=== PATIENT | male | born 1980 | race Caucasian/White ===

== ENCOUNTER 2022-04-05 10:56 | Emergency (ER) | payer OTHER ==
[2022-04-05] MEDS ORDERED: MORPHINE 4 MG/ML SYR ONE (11:16)
[2022-04-05] MEDS ORDERED: ONDANSETRON 4 MG (ODT) TAB ONE (11:17)
--- NOTE | 2022-04-05 12:55 | RAD REPORT ---
EXAM DESCRIPTION: RAD - Ankle Left 3 View - 04/05/2022 12:36 pm CLINICAL HISTORY: PAIN COMPARISON: No comparisons FINDINGS/IMPRESSION: No acute fracture. No malalignment. No significant focal degenerative changes.
--- NOTE | 2022-04-05 13:01 | EDPHYS ---
Physician Documentation [facility] Name: Daniel Munguia Age: 41 yrs Sex: Male : 1980 Arrival Date: 04/05/2022 Time: 10:58 Bed 12 Private MD: ED Physician Zafar Roberson HPI: 04/05 11:09 This 41 yrs old Male presents to ER via Wheelchair with complaints of Ankle Injury. jmm 11:09 The patient presents with an injury, pain. Onset: The symptoms/episode began/occurred jmm acutely. Associated signs and symptoms: Pertinent positives: swelling. This is a 41 year old male with no chronic medical conditions that presents to the ED with complaints of left ankle pain and swelling after turning his foot. Denies other injury. . Historical: - Allergies: 11:03 NSAIDS; iw - Home Meds: 11:03 None [Active]; iw - PMHx: 11:03 None; iw - PSHx: 11:03 jaw; hernia; iw - Immunization history:: Client reports receiving the 2nd dose of the Covid vaccine. - Social history:: Smoking status: Patient denies any tobacco usage or history of. ROS: 11:09 Constitutional: Negative for fever, chills, and weight loss, Cardiovascular: Negative jmm for chest pain, palpitations, and edema, Respiratory: Negative for shortness of breath, cough, wheezing, and pleuritic chest pain. 11:09 MS/extremity: Positive for swelling. 11:09 All other systems are negative. Exam: 11:09 Constitutional: This is a well developed, well nourished patient who is awake, alert, jmm and in no acute distress. Head/Face: atraumatic. Eyes: EOMI, no conjunctival erythema appreciated ENT: Moist Mucus Membranes Neck: Trachea midline, Supple Chest/axilla: Normal chest wall appearance and motion. Cardiovascular: Regular rate and rhythm. No edema appreciated Respiratory: Normal respirations, no respiratory distress appreciated Abdomen/GI: Non distended Back: Normal ROM Skin: General appearance color normal 11:09 Musculoskeletal/extremity: swelling noted to the left ankle at the lateral malleolar region, no pain noted to the base of the 5th metatarsal, compartments are soft, NVI. 11:09 Skin: Appearance: Color: normal in color. 11:09 Neuro: Orientation: is normal, Mentation: is normal, Memory: is normal. 11:09 Psych: Behavior/mood is pleasant, cooperative. Vital Signs: 11:02 BP 119 / 83; Pulse 73; Resp 18; Temp 98.0; Pulse Ox 98% ; Weight 86.18 kg; Height 5 ft. iw 10 in. (177.80 cm); Pain 7/10; 11:02 Body Mass Index 27.26 (86.18 kg, 177.80 cm) iw MDM: 11:09 Patient medically screened. [facility] [place] 12:59 Data reviewed: vital signs, nurses notes. [facility] [place] 14:29 Data reviewed: radiologic studies. I considered the following discharge prescriptions jmm or medication management in the emergency department Medications were administered in the Emergency Department. See MAR. Independent interpretation of the following test(s) in the Emergency Department X-Ray: My interpretation is No fracture appreciated. Historians other than the Patient: . Counseling: I had a detailed discussion with the patient and/or guardian regarding: the historical points, exam findings, and any diagnostic results supporting the discharge/admit diagnosis, radiology results, the need for outpatient follow up, to return to the emergency department if symptoms worsen or persist or if there are any questions or concerns that arise at home. Response to treatment: the patient's symptoms have mildly improved after treatment. 04/05 11:10 Order name: Ankle Left 3 View XRAY; Complete Time: 12:59 [facility] [place] 04/05 12:46 Order name: Colton wrap-joint; Complete Time: 13:10 [facility] [place] 04/05 12:46 Order name: Crutches; Complete Time: 13:10 [facility] [place] Administered Medications: 11:19 Drug: morphine 4 mg Route: IM; Site: right deltoid; iw 11:19 Drug: Zofran (Ondansetron) 4 mg Route: PO; iw Disposition: 14:37 Co-signature as Attending Physician, Zafar Roberson MD I reviewed the patient's care rt provided by the Advanced Practice Provider and agree with the diagnosis and treatment plan. Disposition Summary: 04/05/22 13:00 Discharge Ordered Location: Home [facility] Condition: Stable [facility] Diagnosis - Sprain of ankle [facility] Followup: [facility] - With: Gallo Junior MD - When: 2 - 3 days - Reason: Recheck today's complaints, Continuance of care, Re-evaluation by your physician Discharge Instructions: - Discharge Summary Sheet aleyda - Ankle Sprain aleyda Forms: - Medication Reconciliation Form ellen - Thank You Letter aleyda - Antibiotic Education ellen - Prescription Opioid Use ellen Prescriptions: - orphenadrine citrate 100 mg Oral Tablet Sustained Release - take 1 tablet by ORAL route 2 times per day As needed; 20 tablet; Refills: 0, jmm Product Selection Permitted Signatures: Dispatcher [employer] Holden Solis PA PA jmm Williams, Irene, GEN RN Zafar Hurley MD MD rt
--- NOTE | 2022-04-05 13:01 | ER ---
Nurse's Notes [facility] Name: Daniel Munguia Age: 41 yrs Sex: Male : 1980 Arrival Date: 04/05/2022 Time: 10:58 Bed 12 Private MD: Diagnosis: Sprain of ankle Presentation: 04/05 11:02 Chief complaint: Patient states: stepped off a ladder and rolled his left ankle. iw Coronavirus screen: At this time, the client does not indicate any symptoms associated with coronavirus-19. Ebola Screen: Patient negative for fever greater than or equal to 101.5 degrees Fahrenheit, and additional compatible Ebola Virus Disease symptoms Patient denies exposure to infectious person. Patient denies travel to an Ebola-affected area in the 21 days before illness onset. No symptoms or risks identified at this time. Initial Sepsis Screen: Does the patient meet any 2 criteria? No. Patient's initial sepsis screen is negative. Does the patient have a suspected source of infection? No. Patient's initial sepsis screen is negative. Risk Assessment: Do you want to hurt yourself or someone else? Patient reports no desire to harm self or others. Onset of symptoms was April 05, 2022. 11:02 Method Of Arrival: Wheelchair iw 11:02 Acuity: ALIN 4 iw Historical: - Allergies: 11:03 NSAIDS; iw - Home Meds: 11:03 None [Active]; iw - PMHx: 11:03 None; iw - PSHx: 11:03 jaw; hernia; iw - Immunization history:: Client reports receiving the 2nd dose of the Covid vaccine. - Social history:: Smoking status: Patient denies any tobacco usage or history of. Screenin:09 [facility] ED Fall Risk Assessment (Adult) History of falling in the last 3 months, iw including since admission Yes- single mechanical fall (1 pt). Abuse screen: Denies threats or abuse. Denies injuries from another. Nutritional screening: No deficits noted. Tuberculosis screening: No symptoms or risk factors identified. Assessment: 11:08 General: Appears uncomfortable, Behavior is calm, cooperative. Pain: Complains of pain iw in left lateral ankle. Neuro: Level of Consciousness is awake, alert, obeys commands. Cardiovascular: Patient's skin is warm and dry. Respiratory: Respiratory effort is even, unlabored, Respiratory pattern is regular, symmetrical. Derm: Skin is intact, is healthy with good turgor. Musculoskeletal: Range of motion: limited in left ankle Swelling present in left lateral ankle. 12:11 Reassessment: Patient appears in no apparent distress at this time. Patient and/or iw family updated on plan of care and expected duration. Pain level reassessed. Patient is alert, oriented x 3, equal unlabored respirations, skin warm/dry/pink. Patient states symptoms have not improved. Vital Signs: 11:02 BP 119 / 83; Pulse 73; Resp 18; Temp 98.0; Pulse Ox 98% ; Weight 86.18 kg; Height 5 ft. iw 10 in. (177.80 cm); Pain 7/10; 11:02 Body Mass Index 27.26 (86.18 kg, 177.80 cm) iw ED Course: 10:58 Patient arrived in ED. am2 10:59 Holden Velasco PA is PHCP. [facility] 10:59 Zafar Roberson MD is Attending Physician. [facility] 11:03 Triage completed. iw 11:04 Arm band placed on. iw 11:08 Cass Sigala, RN is Primary Nurse. iw 11:09 No provider procedures requiring assistance completed. iw 12:39 Ankle Left 3 View XRAY In Process Unspecified. EDMS 13:00 Gallo Junior MD is Referral Physician. [facility] Administered Medications: 11:19 Drug: morphine 4 mg Route: IM; Site: right deltoid; iw 11:19 Drug: Zofran (Ondansetron) 4 mg Route: PO; iw Medication: 11:09 VIS not applicable for this client. Outcome: 13:00 Discharge ordered by . [facility] 13:10 Patient left the ED. Signatures: Dispatcher [employer] EDMS Holden Velasco PA PA jmm Williams, Irene, RN RN iw Kelly Alicea am2 Corrections: (The following items were deleted from the chart) 11:04 11:02 Pulse 73bpm; Resp 18bpm; Pulse Ox 98%; Temp 98.0F; 86.18 kg; Height 5 ft. 10 in.; iw BMI: 27.2; Pain 7/10; iw
[2022-04-05 14:13] VITALS: BP 119/83; TEMP 98; O2SAT 98
== END 2022-04-05 13:10 | disposition home or self-care (01) ==
LOC: ER 10:56
DX: S93.402A Sprain of unspecified ligament of left ankle, initial encounter (principal); Z88.6 Allergy status to analgesic agent
CPT/HCPCS: 73610; 96372; 99283; Q0162